=== PATIENT | female | born 1980 | race Asian ===

== ENCOUNTER 2017-10-03 04:33 | Emergency (ER) | payer MEDICAID ==
[~2017-10-03] VITALS: Ht 160 cm; Wt 66.7 kg
[2017-10-03 04:38] VITALS: BP_SYST 129
[2017-10-03 05:45] VITALS: BP_SYST 143
== END 2017-10-03 05:45 | disposition home or self-care (01) ==
LOC: SED 04:33
DX: M54.32 Sciatica, left side (principal); Z88.0 Allergy status to penicillin
CPT/HCPCS: 99283

== ENCOUNTER 2017-10-07 00:09 | Emergency (ER) | payer MEDICAID ==
[~2017-10-07] VITALS: Ht 160 cm; Wt 67.1 kg
[2017-10-07 00:15] VITALS: BP_SYST 157
[2017-10-07 01:22] LABS: BASOPHILS % (AUTO) 0.9 % (0.0-2.0); EOSINOPHILS # (AUTO) 0.2 K/uL (0.0-0.4); EOSINOPHILS % (AUTO) 3.7 % (0.0-4.0); HEMATOCRIT 40.2 % (36-48); HEMOGLOBIN 13.7 g/dL (12.0-16.0); LYMPHOCYTES # (AUTO) 2.2 K/uL (1.0-5.5); LYMPHOCYTES % (AUTO) 39.2 % (20.5-51.5); MEAN CORPUSCULAR HEMOGLOBIN 29 pg (27-31); MEAN CORPUSCULAR HGB CONC 34 % (32-36); MEAN CORPUSCULAR VOLUME 86 fL (79.0-98.0); MONOCYTES # (AUTO) 0.5 K/uL (0.0-1.0); MONOCYTES % (AUTO) 9.1 % (1.7-9.3); NEUTROPHILS # (AUTO) 2.6 K/uL (1.8-7.7); NEUTROPHILS % (AUTO) 47.1 % (40.0-70.0); PLATELET COUNT (AUTO) 286 K/uL (130-430); RED BLOOD CELL COUNT(AUTO) 4.68 MIL/uL (4.2-6.2); WHITE BLOOD COUNT (AUTO) 5.5 K/uL (4.8-10.8)
[2017-10-07 01:31] LABS: CALCIUM 8.7 mg/dL (8.4-11.0); CREATININE 0.61 mg/dL (0.55-1.30); POTASSIUM 3.7 mmol/L (3.5-5.1)
[2017-10-07 01:35] LABS: ALBUMIN 3.9 g/dL (3.4-4.8); TOTAL BILIRUBIN 0.2 mg/dL (0.0-1.0)
[2017-10-07 02:30] VITALS: BP_SYST 129
== END 2017-10-07 02:30 | disposition home or self-care (01) ==
LOC: SED 00:09
DX: H81.10 Benign paroxysmal vertigo, unspecified ear (principal); Z88.0 Allergy status to penicillin
CPT/HCPCS: 36415; 80053; 83690-TC; 85025; 93005; 99285

== ENCOUNTER 2017-11-30 22:35 | Emergency (ER) | payer MEDICAID ==
[~2017-11-30] VITALS: Ht 160 cm; Wt 65.8 kg
[2017-11-30 22:45] VITALS: BP_SYST 150
[2017-12-01 00:35] VITALS: BP_SYST 144
== END 2017-12-01 00:35 | disposition home or self-care (01) ==
LOC: SED 22:35
DX: I10 Essential (primary) hypertension (principal); F41.9 Anxiety disorder, unspecified; Z88.0 Allergy status to penicillin
CPT/HCPCS: 99283

== ENCOUNTER 2018-03-06 01:57 | Emergency (ER) | payer MEDICAID ==
[~2018-03-06] VITALS: Ht 160 cm; Wt 63.5 kg
--- NOTE | 2018-03-06 01:58 | NUR ---
Patient to ER bed 7 to gown for evaluation. Side rails up. Report given to
--- NOTE | 2018-03-06 01:59 | NUR ---
Patient AAOx4, ambulatory. Patient states having a main complaint of "shortness of breath and palpitations" for approximately 30 minutes prior to ER visit. Patient denies chest pain at this time. Patient states she was "at home" and had a sudden onset of difficulty breathing. Mild distress noted with no accessory muscle use. Patient denies asthma, abdominal pain, and denies any other complaints.
--- NOTE | 2018-03-06 02:00 | NUR ---
Dr Conte at bedside to evaluate patient.
[2018-03-06 02:06] VITALS: BP_SYST 147
--- NOTE | 2018-03-06 02:15 | NUR ---
# 20 gauge angiocath placed to left AC. Use of asceptic technique. Opsite placed over site. Blood return noted. Blood for lab drawn from site. Flushed with 10 cc of normal saline. No evidence of infiltration noted. Patient tolerated well.
[2018-03-06 02:54] LABS: BASOPHILS # (AUTO) 0.1 K/uL (0.0-0.2); BASOPHILS % (AUTO) 1.4 % (0.0-2.0); EOSINOPHILS # (AUTO) 0.2 K/uL (0.0-0.4); EOSINOPHILS % (AUTO) 2.8 % (0.0-4.0); HEMATOCRIT 41.7 % (36-48); LYMPHOCYTES # (AUTO) 2.3 K/uL (1.0-5.5); LYMPHOCYTES % (AUTO) 36.7 % (20.5-51.5); MEAN CORPUSCULAR HEMOGLOBIN 29 pg (27-31); MEAN CORPUSCULAR HGB CONC 34 % (32-36); MEAN CORPUSCULAR VOLUME 87 fL (79.0-98.0); MONOCYTES # (AUTO) 0.4 K/uL (0.0-1.0); MONOCYTES % (AUTO) 6.1 % (1.7-9.3); NEUTROPHILS # (AUTO) 3.2 K/uL (1.8-7.7); PLATELET COUNT (AUTO) 315 K/uL (130-430); RED BLOOD CELL COUNT(AUTO) 4.78 MIL/uL (4.2-6.2); RED CELL DISTRIBUTION WIDTH 12.4 % (9.0-15.0); WHITE BLOOD COUNT (AUTO) 6.2 K/uL (4.8-10.8)
[2018-03-06 03:03] LABS: ANION GAP 7 (5-15); CALCIUM 9.1 mg/dL (8.4-11.0); CHLORIDE 105 mmol/L (98-107); CREATININE 0.78 mg/dL (0.55-1.30); GLUCOSE 132 mg/dL (70-99); SODIUM SERUM 139 mmol/L (136-145); UREA NITROGEN, BLOOD 13 mg/dL (8-21)
[2018-03-06 03:06] LABS: GFR AFRICAN AMERICAN 107 mL/min (>90)
[2018-03-06 03:11] LABS: ALANINE AMINOTRANSFERASE 27 U/L (12-78); ALBUMIN 4.1 g/dL (3.4-4.8); ASPARTATE AMINOTRANSFERASE 17 U/L (10-37); TOTAL BILIRUBIN 0.5 mg/dL (0.0-1.0)
[2018-03-06 03:36] VITALS: BP_SYST 118
--- NOTE | 2018-03-06 03:36 | NUR ---
Patient given written and verbal discharge instructions and verbalizes understanding. ER MD discussed with patient the results and treatment provided. Patient in stable condition. ID arm band removed. IV catheter removed intact and dressing applied, no active bleeding. Patient educated on pain management and to follow up with PMD. Pain Scale 0/10. Opportunity for questions provided and answered.
== END 2018-03-06 03:36 | disposition home or self-care (01) ==
LOC: SED 01:57
DX: R06.02 Shortness of breath (principal); F41.9 Anxiety disorder, unspecified; I10 Essential (primary) hypertension; Z88.0 Allergy status to penicillin
CPT/HCPCS: 36415; 71045; 80053; 81025; 82550-TC; 84484; 85025; 85379; 93005; 99285

== ENCOUNTER 2018-06-28 21:36 | Emergency (ER) | payer MEDICAID ==
[~2018-06-28] VITALS: Ht 160 cm; Wt 63.5 kg
[2018-06-28 21:43] VITALS: BP_SYST 104
[2018-06-28] MEDS ORDERED: LORazepam 1 MG TABLET PO ONE (22:00)
[2018-06-28 22:48] VITALS: BP_SYST 121
== END 2018-06-28 22:48 | disposition home or self-care (01) ==
LOC: SED 21:36
DX: F41.0 Panic disorder [episodic paroxysmal anxiety] (principal); Z88.0 Allergy status to penicillin
CPT/HCPCS: 82962; 99282

== ENCOUNTER 2018-10-09 01:42 | Emergency (ER) | payer MEDICAID ==
[~2018-10-09] VITALS: Ht 160 cm; Wt 61.2 kg
[2018-10-09 01:45] VITALS: BP_SYST 140
[2018-10-09 02:30] VITALS: BP_SYST 138
== END 2018-10-09 02:30 | disposition home or self-care (01) ==
LOC: SED 01:42
DX: R06.4 Hyperventilation (principal); F41.9 Anxiety disorder, unspecified; I10 Essential (primary) hypertension; Z88.0 Allergy status to penicillin; Z88.1 Allergy status to other antibiotic agents
CPT/HCPCS: 71045; 93005; 99283

== ENCOUNTER 2019-03-29 21:23 | Emergency (ER) | payer MEDICAID ==
[~2019-03-29] VITALS: Ht 160 cm; Wt 62.6 kg
[2019-03-29 21:28] VITALS: BP_SYST 118
--- NOTE | 2019-03-29 21:54 | NUR ---
Patient to ER bed 3 to gown for evaluation. Side rails up. Report given to Jocelyn CARDENAS/Shyam CARDENAS.
--- NOTE | 2019-03-29 22:25 | NUR ---
ER at bedside examining patient.
[2019-03-29] MEDS ORDERED: PHENAZOPYRIDINE HCL 100 MG TABLET PO ONE (22:45)
[2019-03-29] MEDS ORDERED: CIPROFLOXACIN HCL 500 MG TABLET PO ONE (22:45)
--- NOTE | 2019-03-29 22:56 | NUR ---
DPatient given written and verbal discharge instructions and verbalizes understanding. ER MD discussed with patient the results and treatment provided. Patient in stable condition. ID arm band removed. Rx of CIPRO AND PYRIDIUM given. Patient educated on pain management and to follow up with PMD. Pain Scale 6/10. Opportunity for questions provided and answered. Medication side effect fact sheet provided.
[2019-03-29 22:58] VITALS: BP_SYST 119
== END 2019-03-29 22:58 | disposition home or self-care (01) ==
LOC: SED 21:23
DX: N39.0 Urinary tract infection, site not specified (principal); F41.9 Anxiety disorder, unspecified; I10 Essential (primary) hypertension; Z88.0 Allergy status to penicillin
CPT/HCPCS: 81002; 81025; 99283

== ENCOUNTER 2019-06-27 20:05 | Emergency (ER) | payer MEDICAID ==
[~2019-06-27] VITALS: Ht 160 cm; Wt 63.5 kg
[2019-06-27 20:55] VITALS: BP_SYST 116
[2019-06-28 00:52] VITALS: BP_SYST 122
== END 2019-06-28 00:52 | disposition home or self-care (01) ==
LOC: SED 20:05
DX: H57.89 Other specified disorders of eye and adnexa (principal); I10 Essential (primary) hypertension; F41.9 Anxiety disorder, unspecified
CPT/HCPCS: 99282

== ENCOUNTER 2020-02-27 18:20 | Emergency (ER) | payer MEDICAID ==
[~2020-02-27] VITALS: Ht 162.6 cm; Wt 63.5 kg
[2020-02-27 18:29] VITALS: BP_SYST 111
[2020-02-27] MEDS: METHOCARBAMOL 1000 MG/10 ML VIAL IM ONE (20:31)
[2020-02-27 20:59] VITALS: BP_SYST 109
== END 2020-02-27 20:59 | disposition home or self-care (01) ==
LOC: SED 18:20
DX: S86.812A Strain of other muscle(s) and tendon(s) at lower leg level, left leg, initial encounter (principal); M54.32 Sciatica, left side; I10 Essential (primary) hypertension; F41.9 Anxiety disorder, unspecified; Z88.0 Allergy status to penicillin; Z88.1 Allergy status to other antibiotic agents; X50.9XXA Other and unspecified overexertion or strenuous movements or postures, initial encounter; Y93.89 Activity, other specified; Y92.89 Other specified places as the place of occurrence of the external cause; Y99.8 Other external cause status
CPT/HCPCS: 72131; 93971; 96372; 99285; J2800

== ENCOUNTER 2021-09-07 19:21 | Emergency (ER) | payer MEDICAID, SELFPAY ==
[~2021-09-07] VITALS: Ht 160 cm; Wt 66.2 kg
[2021-09-07 20:13] VITALS: BP_SYST 119
--- NOTE | 2021-09-07 20:16 | NUR ---
Patient triaged and placed in waiting room. VSS and patient appears in no acute distress at this time. Accompanied by , awaiting available bed, and MD notified of need for MSE.
[2021-09-07] MEDS ORDERED: ONDANSETRON 4 MG ODT TAB PO ONE (21:00)
[2021-09-07] MEDS ORDERED: MAG HYDROX/AL HYDROX/SIMETH 30 ML, DICYCLOMINE HCL 20 MG, LIDOCAINE VISCOUS 2% 15ML (PO... PO ONE ×3 (21:00)
[2021-09-07] MEDS ORDERED: ONDANSETRON 4 MG ODT TAB ONE (21:04)
[2021-09-07 21:36] LABS: BASOPHILS % (AUTO) 0.4 % (0.0-2.0); EOSINOPHILS # (AUTO) 0.2 K/uL (0.0-0.4); EOSINOPHILS % (AUTO) 3.3 % (0.0-4.0); HEMATOCRIT 41.3 % (36-48); HEMOGLOBIN 13.9 g/dL (12.0-16.0); LYMPHOCYTES # (AUTO) 1.2 K/uL (1.0-5.5); LYMPHOCYTES % (AUTO) 23.1 % (20.5-51.5); MEAN CORPUSCULAR HEMOGLOBIN 29 pg (27-31); MEAN CORPUSCULAR HGB CONC 34 % (32-36); MEAN CORPUSCULAR VOLUME 85 fL (79.0-98.0); MONOCYTES # (AUTO) 0.4 K/uL (0.0-1.0); MONOCYTES % (AUTO) 6.9 % (1.7-9.3); NEUTROPHILS # (AUTO) 3.5 K/uL (1.8-7.7); NEUTROPHILS % (AUTO) 66.3 % (40.0-70.0); PLATELET COUNT (AUTO) 266 K/uL (130-430); RED BLOOD CELL COUNT(AUTO) 4.85 MIL/uL (4.2-6.2); RED CELL DISTRIBUTION WIDTH 14.1 % (9.0-15.0); WHITE BLOOD COUNT (AUTO) 5.3 K/uL (4.8-10.8)
[2021-09-07 21:41] LABS: CALCIUM 8.5 mg/dL (8.4-11.0); CREATININE 0.59 mg/dL (0.55-1.30); POTASSIUM 3.5 mmol/L (3.5-5.1)
[2021-09-07 21:47] LABS: ALBUMIN 3.8 g/dL (3.4-4.8); TOTAL BILIRUBIN 1.7 mg/dL (0.0-1.0)
[2021-09-07] MEDS ORDERED: NACL 0.9% 1,000 ML IV ONE (22:30)
[2021-09-07] MEDS ORDERED: CIPROFLOXACIN LACT 400 MG/D5W 200 ML IV ONE (22:30)
[2021-09-07] MEDS ORDERED: metroNIDAZOLE 500 mg/NS 100 ML IV ONE (22:30)
--- NOTE | 2021-09-07 22:52 | NUR ---
Patient ambulatory to bed 8 for evaluation and treatment
--- NOTE | 2021-09-07 22:57 | NUR ---
PT COMES TO ER WITH C/O LEFT UPPER QUAD PAIN X 4 DAYS, PROGREESIVELY GETTIG WORSE. STATES MILD NAUSEA/NO VOMITTING. "IM VERY GASSY", TAKING ANTACIDS WITH MILD HELP. DENIES ANY FEVERS/DYSURIA. PAIN TO LEFT UPPER ABDOMEN RADIATIG TO LEFT UPPER BACK, INTERMITTENT 5/10 AT THIS TIME. SKIN W/D/I. RESP EVEN AND UNLABORED, ON RA @99%. SL TO LEFT AC INSERTED, IV NS BOLUS STARTED A ORDERED.
--- NOTE | 2021-09-07 23:06 | NUR ---
PT TO XRAY VIA W/C.
[2021-09-07 23:31] LABS: BILIRUBIN,URINE NEGATIVE (NEGATIVE); BLOOD, URINE NEGATIVE (NEGATIVE); CLARITY/URINE CLEAR (CLEAR); COLOR,URINE YELLOW (YELLOW); GLUCOSE,URINE NEGATIVE (NEGATIVE); KETONES,URINE NEGATIVE (NEGATIVE); LEUKOCYTE ESTERASE ,URINE 1+ (NEGATIVE); NITRITE, URINE NEGATIVE (NEGATIVE); PROTEIN URINE NEGATIVE (NEGATIVE); UROBILINOGEN,URINE 0.2 (0.2-1.0)
[2021-09-07 23:41] LABS: BACTERIA,URINE FEW /HPF (None Seen); MUCUS,URINE None Seen /LPF (None Seen); RBC,URINE 0-3 /HPF (0-3)
--- NOTE | 2021-09-08 00:05 | NUR ---
COVID swabbed. Sent to the lab.
--- NOTE | 2021-09-08 01:23 | NUR ---
PT UP TO BATHROOM, STEADY GAIT. IV FLUIDS INFUSING WELL.
--- NOTE | 2021-09-08 03:02 | NUR ---
PT WITH EYES CLOSE,D IN NAD. AT BEDSIDE. VSS.
--- NOTE | 2021-09-08 04:39 | NUR ---
NO ACUTE CHANGES IN CONDITION, PT WITH EYES CLOSED, AT BEDSIDE.
--- NOTE | 2021-09-08 06:32 | NUR ---
NO ACUTE CHANGES IN CONDITION, PT WITH EYES CLOSED, RESP EVEN AND UNLBAORED,ON RA @99%. AT BEDSIDE.
--- NOTE | 2021-09-08 07:35 | NUR ---
ASSUMED PATIENT CARE 41 YEARS OLD FEMALE WITH ABDOMINAL PAIN CONDITION IMPROVED DENIES NAUSEA, AWAITING FOR AMBULANCE TRANSFER.
[2021-09-08 07:47] VITALS: BP_SYST 114
--- NOTE | 2021-09-08 10:22 | NUR ---
[facility] CALLED AND GAVE ETA 113
--- NOTE | 2021-09-08 12:06 | NUR ---
PATIENT REASSESS NO PAIN CONDITION STABLE TRANSFER TO [facility]IA [facility].
--- NOTE | 2021-09-08 12:07 | NUR ---
Patient to be transferred to [facility]. Is being transferred due to higher level of care. Receiving facility has accepting physician and available space. ER physician has signed transfer form. Patient or responsible alliance party has agreed to transfer and signed form. Patient belongings inventoried and will be sent with patient. Copy of nursing notes, lab reports, EKG, Physicians Orders and X-rays to be sent with patient. Report called to at receiving facility. Receiving physician is . ambulance service has been called for transfer. ETA is .
== END 2021-09-08 12:07 | disposition short-term general hospital (02) ==
LOC: SED 19:21
DX: K80.50 Calculus of bile duct without cholangitis or cholecystitis without obstruction (principal); I10 Essential (primary) hypertension; F41.9 Anxiety disorder, unspecified; Z88.0 Allergy status to penicillin; Z88.1 Allergy status to other antibiotic agents; Z20.822 Contact with and (suspected) exposure to COVID-19
CPT/HCPCS: 36415; 76700; 80053; 81000; 81025; 84702; 85025; 87086; 87426; 96365; 96367; 99285; J0744; J2001; J3490; Q0162; 99284